=== PATIENT | male | born 1945 | race Caucasian/White ===

== ENCOUNTER 2018-07-06 14:32 | Emergency (ER) | payer OTHER ==
[~2018-07-06] VITALS: Ht 160 cm; Wt 67.6 kg
[~2018-07-06 14:32] MED LIST: COL100 PO; METFORMIN HCL500 MG PO; NAPROSYN500 MG PO; NEU300 PO
[2018-07-06 14:59] VITALS: BP 131/75; Ht 160 cm; Wt 67.6 kg
== END 2018-07-06 17:57 | disposition home or self-care (01) ==
LOC: ED 14:32
DX: K46.9 Unspecified abdominal hernia without obstruction or gangrene (principal); E11.9 Type 2 diabetes mellitus without complications; Z90.49 Acquired absence of other specified parts of digestive tract
CPT/HCPCS: J1885